=== PATIENT | female | born 1975 | race Caucasian/White ===

== ENCOUNTER 2017-11-12 00:48 | Emergency (ER) | payer BC ==
--- NOTE | 2017-11-12 01:00 | NUR ---
PT BIBSELF C/O RASH THROUGHOUT BODY FOR SEVERAL MONTHS AND LIP SWELLING BEGAN TODAY. PT AOX3 RR EVEN AND UNLABORED. DENIES SOB. NO NVD AT THIS TIME. PT STATES BEGAN SYNTHROID YESTERDAY AND WAS RECENTLY DX WITH JIGNA DISEASE SUNDAY. PT PT GOWNED AND PLACED ON MONITOR WAITING FOR MD DANIEL.
[2017-11-12] MEDS ORDERED: methylPREDNISolone SOD SUCC 125 MG/2ML VIAL ONE (01:04)
[2017-11-12] MEDS ORDERED: diphenhydrAMINE HCL 50 MG/ML VIAL ONE (01:04)
[2017-11-12] MEDS ORDERED: FAMOTIDINE/PF INJ 20 MG/2 ML VIAL IV ONE ×2 (01:04→01:30)
--- NOTE | 2017-11-12 01:05 | NUR ---
DR. MEZA AT BEDSIDE FOR EVAL.
[2017-11-12] MEDS ORDERED: IV NS 0.9% 1,000 ML BAG IV ONE (01:30)
[2017-11-12] MEDS ORDERED: diphenhydrAMINE HCL 50 MG/ML VIAL IV ONE (01:30)
[2017-11-12] MEDS ORDERED: methylPREDNISolone SOD SUCC 125 MG/2ML VIAL IV ONE (01:30)
--- NOTE | 2017-11-12 01:59 | NUR ---
PER PT STATES LIP SWELLING HAS IMPROVED. DR. MEZA MADE AWARE
[2017-11-12 02:50] VITALS: BP 116/77
--- NOTE | 2017-11-12 02:50 | NUR ---
IV removed. Catheter intact and site benign. Pressure and 4x4 applied to site. No bleeding noted. Patient discharged to home in stable condition. Written and verbal after care instructions given. Patient verbalizes understanding of instruction. ambulatory with a steady gait. instructed pt not to drive. pt verbalize understanding.
== END 2017-11-12 02:51 | disposition home or self-care (01) ==
LOC: ER 00:53
DX: T78.3XXA Angioneurotic edema, initial encounter (principal); E06.3 Autoimmune thyroiditis
CPT/HCPCS: 96361; 96374; 96375; 99284; J1200; J2930; J3490; J7030; A4606; Z7610